=== PATIENT | female | born 1955 | race Caucasian/White ===

== ENCOUNTER 2019-03-11 11:50 | Inpatient (IN) | payer OTHER ==
[~2019-03-11] VITALS: Ht 165.1 cm; Wt 101.6 kg
[2019-03-11 11:52] VITALS: Ht 165.1 cm; Wt 101.6 kg
--- NOTE | 2019-03-11 12:00 | NUR ---
RECEIVED PATIENT FROM TRIAGE, PATIENT AMBULATED TO ROOM 11. PATIENT C/O SOB WHEN AMBULATING AND WHEN RESTING AT TIMES. STATES " I HAVE TO SIT DOWN AND BLOW OFF AIR OUT OF MY LUNGS. IT'S BEEN GOING ON AND OFF FOR MORE THAN 6 MOS NOW." WHEN ASKED IF SHE HAS SEEN HER PMD, PATIENT STATES "NO BECAUSE I DON'T HAVE ANY INSURANCE AT THIS TIME, UNTIL MAY." PATIENT IS AAO X 4 (NAME, DATE, CONDITION AND LOCATION). EYES - JAKE. MUCUS - PINK. LUNGS - CTA. 02 = 100% ON RA. SR ON MONITOR. BS PRESENT X 4 QUADRANTS. B/L UPPER AND LOWER EXT PULSES PALPABLE. WILL CONTINUE TO MONITOR//APR RN
--- NOTE | 2019-03-11 12:04 | NUR ---
DR VERA AT BEDSIDE FOR EVAL, APR RN AT BEDSIDE [employer] MANUFACTURING TECH.//APR RN
[2019-03-11 12:19] LABS: BASOPHIL % 0.5 % (0-2); PLATELET COUNT 302 x10^3mcL (130-400)
[2019-03-11 12:21] LABS: RED CELL DISTRIBUTION WIDTH 18.5 % (11.5-14.5)
[2019-03-11 12:28] LABS: CALCIUM 9.2 mg/dL (8.5-10.1); CARBON DIOXIDE 26.8 mmol/L (21-32); CHLORIDE SERUM 106 mmol/L (98-107); CREATININE SERUM 0.7 mg/dL (0.6-1.0); GFR1 > 60 mL/min; GLUCOSE SERUM 112 mg/dL (74-106); POTASSIUM SERUM 4.2 mmol/L (3.5-5.1); SODIUM SERUM 142 mmol/L (136-145)
[2019-03-11 12:33] LABS: ALBUMIN 3.6 g/dL (3.4-5.0); ALKALINE PHOSPHATASE 60 U/L (46-116); ALT/SGPT 20 U/L (14-59); AST/SGOT 9 U/L (15-37); BILIRUBIN TOTAL 0.4 mg/dL (0.20-1.00); TOTAL PROTEIN, SERUM 7.3 g/dL (6.4-8.2)
[2019-03-11] MEDS ORDERED: LIPITOR40 MG PO (14:02)
[2019-03-11] MEDS ORDERED: ZOLOFT100 MG PO (14:02)
[2019-03-11] MEDS ORDERED: SYNTHROID0.088 MG PO (14:03)
--- NOTE | 2019-03-11 14:54 | NUR ---
REPORT GIVEN TO RAJAN BUENO FOR ROOM 241-B. PATIENT AND FRIEND MADE AWARE OF ADMISSION.//APR RN
[2019-03-11 15:12] VITALS: BP 127/78
--- NOTE | 2019-03-11 15:23 | NUR ---
RECEIVED PT FROM ER, PT ADMIT FOR SYMPTONMATIC ANEMIA, PT IS A/O X4, VERBAL RESPONSIVE, ABLE TO TELL WHAT SHE NEEDS. LUNG SOUND CLEAR BILATERAL, NO COUGH, BUT PT C/O SOB WHILE AMBULATE. PO2 98% IN ROOM AIR, PT IS ON TELE 1. NSR, DENY ANY CHEST PAIN OR DISCOMFORT, BOWEL SOUND PRESENT ALL 4 QUARANTS, NO DISTENTION, NO TENDER. PEDAL PULSE PRESENT BOTH FEET, NO EDEMA, PT STATE HAD BLACK STOOL YESTERDAY. IV AT LEFT AC, NO LEAKING, NO INFILTRATION. ALL ADLS ASSIST, ALL NEED MET, CALL LIGHT IN REACH, WILL CONTINUE TO MONITOR.
--- NOTE | 2019-03-11 16:20 | NUR ---
PATIENT RESTING IN BED, NO ACUTE DISTRESS NOTED. PATIENT C/O MILD HEADACHE, PATIENT STATED IT WAS TOLERABLE. EDUCATED PATIENT ON PAIN MANAGEMENT. CALL LIGHT WITHIN REACH, BED IN LOW POSITION. WILL CONTINUE TO MONITOR FOR CHANGES.
--- NOTE | 2019-03-11 18:30 | NUR ---
PATIENT RESTING IN BED, NO ACUTE DISTRESS NOTED. PATIENT DENIES PAIN AT THIS TIME. NO ACUTE CHANGES NOTED THROUGH OUT SHIFT, PATIENT IS STABLE. NS INFUSING TO LAC AT 50ML/HR, IV SITE CDI&PATENT, NO S/S OF INFILTRATION. CALL LIGHT WITHIN REACH, BED IN LOW POSITION. WILL ENDORSE REPORT TO NIGHT NURSE.
--- NOTE | 2019-03-11 19:54 | NUR ---
FOLLOWED UP WITH BLOOD BANK. STILL WAITING ON INFO FROM [facility]. STATED WILL CALL ONCE BLOOD IS READY.
--- NOTE | 2019-03-11 20:04 | NUR ---
PT RECIEVED FROM DAY NURSE. PT RESTING IN BED COMFORTABLY. PT DENIES ANY PAIN AT THIS TIME. PT DENIES N/V, DIZZINESS, AND PALPATATIONS. A/O X4. TELE #1, NORMAL SINUS. PALPABLE PULSES, NO EDEMA NOTED. LUNG SOUNDS CLEAR BILATERALLY, ON RA. BOWEL SOUNDS PRESENT, ACTIVE. LAST BM 03/10. LAC IV CDI. CALL LIGHT W/I REACH. BED AT LOWEST POSITION. WILL CONTINUE TO MONITOR.
[2019-03-11 21:00] VITALS: BP 119/74
[2019-03-11 21:29] VITALS: BP 119/74
--- NOTE | 2019-03-11 22:39 | NUR ---
FOLLOWED UP WITH BLOOD BANK. STATED BLOOD SHOULD BE READY IN ABOUT AN HOUR.
--- NOTE | 2019-03-11 23:00 | NUR ---
LAB AT BEDSIDE TO COLLECT MORE BLOOD FOR TYPE AND SCREEN.
--- NOTE | 2019-03-12 00:30 | NUR ---
PT RESTING IN BED WITH EYES CLOSED. NO S/S OF PAIN. BREATING EVEN AND UNLABORED ON ROOM AIR. STILL AWAITING BLOOD TRANSFUSTION. CALL LIGHT WITH IN REACH. BED AT LOWEST POSITION. WILL CONTINUE TO MONITOR.
[2019-03-12 01:03] VITALS: BP 97/53
--- NOTE | 2019-03-12 01:12 | NUR ---
RECIEVED 1 UNIT PRBC FROM BLOOD BANK. BLOOD TRANSFUSION INITIATED AT 0108 AT 50 MLS AN HR. VITAL SIGNS STABLE. NO COMPLAINTS FROM THE PT AT THIS TIME.
[2019-03-12 01:23] VITALS: BP 105/55
--- NOTE | 2019-03-12 01:23 | NUR ---
PT VITALS REMAIN STABLE 15 MINS INTO TRANSFUSION. NO ADVERSE REACTIONS NOTED. TRANSFUSION RATE INCREASED TO 100 MLS/HR. IV TO LAC INTACT AND PATENT. WILL CONTINUE TO MONITOR.
--- NOTE | 2019-03-12 01:43 | NUR ---
I HAVE REVIEWED THE DATA COLLECTION BY RN: HALEY GRIFFITH ENTERED ON 03/11-03/12 I CONCUR WITH THE DATA AND ANY EXCEPTIONS OR COMMENTS ARE LISTED BELOW:
[2019-03-12 04:55] VITALS: BP 109/59
--- NOTE | 2019-03-12 04:55 | NUR ---
1 UNIT PRBC TRANSFUSION COMPLETED. NO ADVERSE AFFECTS NOTED. LUNG SOUNDS CLEAR. VSS. FLUSHING WITH NS AT 100 ML/HR. CBC SCHEDULED FOR 0600. PT RESTING COMFORTABLY IN BED, WITH EYES CLOSED. NO S/S OF PAIN. BREATHING EVEN AND UNLABORED ON RA. WILL ENDORSE TO DAY NURSE.
--- NOTE | 2019-03-12 05:19 | NUR ---
SPOKE TO DR. QUEVEDO. CONFIRMED SHE WOULD LIKE CBC DRAWN AT 0600, NOT 15 MIN POST TRANFUSION. PHLEBOTIMIST AWARE.
[2019-03-12 05:31] VITALS: BP 117/72
[2019-03-12 06:25] LABS: CALCIUM 8.6 mg/dL (8.5-10.1); CARBON DIOXIDE 23.7 mmol/L (21-32); CHLORIDE SERUM 109 mmol/L (98-107); CREATININE SERUM 0.7 mg/dL (0.6-1.0); GFR1 > 60 mL/min; GLUCOSE SERUM 102 mg/dL (74-106); MAGNESIUM 2.3 mg/dL (1.8-2.4); POTASSIUM SERUM 3.7 mmol/L (3.5-5.1); SODIUM SERUM 144 mmol/L (136-145)
[2019-03-12 07:08] LABS: BASOPHIL % 0.4 % (0-2); PLATELET COUNT 237 x10^3mcL (130-400)
[2019-03-12 07:09] LABS: RED CELL DISTRIBUTION WIDTH 21.5 % (11.5-14.5)
[2019-03-12 07:10] LABS: rbc morphology (normal/abnorm) ABNORMAL (NORMAL)
--- NOTE | 2019-03-12 07:22 | NUR ---
RECEIVED PT FROM SHIFT NURSE ASLEEP BUT AROUSABLE. APPEARS IN NO ACUTE DISTRESS. HEPLOCK PATENT. BED IN LOW POSITION. CALL LIGHT WITHIN REACH. WILL CONTINUE TO MONITOR.
[2019-03-12] MEDS ORDERED: FERROUS SULFAT325 M2 PO (09:18)
[2019-03-12] MEDS ORDERED: SYNTHROID0.088 MG PO (09:19)
[2019-03-12] MEDS ORDERED: COLACE100 MG PO (09:19)
[2019-03-12] MEDS ORDERED: GOOD SENSE OMEP20 MG PO (09:19)
[2019-03-12] MEDS ORDERED: ATORVASTATIN CA40 M1 PO (09:19)
[2019-03-12 09:31] VITALS: BP 125/77
--- NOTE | 2019-03-12 10:24 | NUR ---
PT SITTING UP IN BED TALKING WITH FAMILY MEMBERS. IV INTACT AND PATENT. CALL LIGHT WITHIN REACH. WILL CONTINUE TO MONITOR.
--- NOTE | 2019-03-12 11:45 | NUR ---
PT AMBULATING AROUND HALLWAY.
[2019-03-12 12:06] VITALS: BP 119/83
== END 2019-03-12 13:04 | disposition left against medical advice (07) | DRG 379 ==
LOC: ED 11:50 → MU 13:58 → DU 22:48
PROVIDERS: Emergency Medicine; ADMIT Internal Medicine
PROC: 30233N1 Transfusion of Nonautologous Red Blood Cells into Peripheral Vein, Percutaneous Approach (ICD-10-PCS; principal; 2019-03-12)
DX: K92.2 Gastrointestinal hemorrhage, unspecified (principal); E03.9 Hypothyroidism, unspecified; D50.9 Iron deficiency anemia, unspecified; K21.9 Gastro-esophageal reflux disease without esophagitis; M19.90 Unspecified osteoarthritis, unspecified site; Z53.21 Procedure and treatment not carried out due to patient leaving prior to being seen by health care provider; E66.9 Obesity, unspecified; Z68.37 Body mass index [BMI] 37.0-37.9, adult
CPT/HCPCS: 83880; 85378; 90732; G0378; J2916; J3490; J7030; J7050; P9016; Q0092; Q0163

== ENCOUNTER 2019-05-13 10:14 | Emergency (ER) | payer SELFPAY ==
[~2019-05-13] VITALS: Ht 165.1 cm; Wt 102.1 kg
[~2019-05-13 10:14] MED LIST: ATORVASTATIN CA40 M1 PO; COLACE100 MG PO; FERROUS SULFAT325 M2 PO; GOOD SENSE OMEP20 MG PO; LIPITOR40 MG PO; SYNTHROID0.088 MG PO; ZOLOFT100 MG PO
[2019-05-13 10:19] VITALS: Ht 165.1 cm; Wt 102.1 kg
[2019-05-13 11:02] LABS: PLATELET COUNT 208 x10^3mcL (130-400)
[2019-05-13 11:07] LABS: CALCIUM 8.4 mg/dL (8.5-10.1); CARBON DIOXIDE 24.9 mmol/L (21-32); CHLORIDE SERUM 108 mmol/L (98-107); CREATININE SERUM 0.8 mg/dL (0.6-1.0); GFR1 > 60 mL/min; GLUCOSE SERUM 89 mg/dL (74-106); POTASSIUM SERUM 4.2 mmol/L (3.5-5.1); SODIUM SERUM 144 mmol/L (136-145)
[2019-05-13 11:22] LABS: ALBUMIN 3.7 g/dL (3.4-5.0); ALKALINE PHOSPHATASE 82 U/L (46-116); ALT/SGPT 20 U/L (14-59); AST/SGOT 16 U/L (15-37); BILIRUBIN TOTAL 0.4 mg/dL (0.20-1.00); TOTAL PROTEIN, SERUM 7.9 g/dL (6.4-8.2)
[2019-05-13 11:47] LABS: RED CELL DISTRIBUTION WIDTH 21.5 % (11.5-14.5)
[2019-05-13 11:54] LABS: ATYPICAL LYMPH 0 %; BAND NEUTROPHIL 2 % (0-10); MONOCYTE 8 % (0-7); SEGMENTED NEUTROPHILS 40 % (37-75)
[2019-05-13 11:55] LABS: BASOPHIL 0 % (0-2); rbc morphology (normal/abnorm) ABNORMAL (NORMAL)
[2019-05-13 11:56] LABS: PLATELET MORPHOLOGY N
[2019-05-13 14:10] VITALS: BP 123/77
== END 2019-05-13 14:10 | disposition home or self-care (01) ==
LOC: ED 10:14
PROVIDERS: Emergency Medicine
DX: E03.9 Hypothyroidism, unspecified (principal); I10 Essential (primary) hypertension; E78.00 Pure hypercholesterolemia, unspecified; Z86.2 Personal history of diseases of the blood and blood-forming organs and certain disorders involving the immune mechanism
CPT/HCPCS: 36415; 84439